=== PATIENT | male | born 1990 | race Two or more races ===

== ENCOUNTER 2016-12-06 23:34 | Emergency (ER) | payer OTHER ==
[~2016-12-06] VITALS: Ht 165.1 cm; Wt 77.1 kg
[2016-12-07] MEDS ORDERED: HYDROcodone-ACET 10/325MG TAB PO ONE (02:30)
[2016-12-07] MEDS ORDERED: ETOMIDATE (2MG/ML) 20ML VIAL IV ONE (03:45)
[2016-12-07] MEDS ORDERED: HYDROmorphone HCL 2 MG/ML VL IV ONE (04:00)
[2016-12-07] MEDS ORDERED: ONDANSETRON HCL 4 MG/2 ML VIAL ONE (04:02)
[2016-12-07] MEDS ORDERED: ONDANSETRON HCL 4 MG/2 ML VIAL IV ONE (04:30)
[2016-12-07 05:55] VITALS: BP 144/81
== END 2016-12-07 06:10 | disposition home or self-care (01) ==
LOC: ER 23:44 → EEVIPCON 23:44 → ER 12-07 06:10
DX: S43.005A Unspecified dislocation of left shoulder joint, initial encounter (principal); X58.XXXA Exposure to other specified factors, initial encounter; Y93.89 Activity, other specified; Y99.8 Other external cause status; Y92.89 Other specified places as the place of occurrence of the external cause
CPT/HCPCS: 23650; 73020; 73030; 96374; 96375; 99285; J1170; J2405